=== PATIENT | male | born 1945 | race Hispanic/Latino ===

== ENCOUNTER → 2017-06-30 | Outpatient (CLI) | payer OTHER, MEDICARE ==
[~2017-06-30] MED LIST: ALLO100T PO; DIFL5DRO OP; FEBU80TA PO; HYDR-4153 PO; IOPAMIDOL-370 100 ML VIAL IV ONE; LOSA100T29 PO
== END | disposition home or self-care (01) ==
LOC: RAH 09:26
PROVIDERS: ATTEND Internal Medicine Cardiovascular Disease
DX: I71.4 Abdominal aortic aneurysm, without rupture (principal); K44.9 Diaphragmatic hernia without obstruction or gangrene; K57.30 Diverticulosis of large intestine without perforation or abscess without bleeding; N28.1 Cyst of kidney, acquired; R93.49 Abnormal radiologic findings on diagnostic imaging of other urinary organs
CPT/HCPCS: 74174; Q9967

== ENCOUNTER 2017-07-26 11:00 | Inpatient (IN) | payer OTHER, MEDICARE ==
[~2017-07-26] VITALS: Ht 175.3 cm; Wt 76.9 kg
[2017-07-26 12:15] VITALS: BP 157/81
[2017-07-26] MEDS ORDERED: LOSA100T29 PO (12:30)
[2017-07-26] MEDS ORDERED: ALLO100T PO (12:30)
[2017-07-26 13:03] LABS: CREATININE 0.8 mg/dL (0.5-1.5); HEMATOCRIT 40.7 % (42-54); MEAN CORPUSCULAR HEMOGLOBIN 32.9 pg (27.0-33.0); MEAN CORPUSCULAR VOLUME 96.9 fL (79-99); PLATELET COUNT (AUTO) 145 K/uL (130-400); POTASSIUM 5.4 mmol/L (3.5-5.1); RED CELL DISTRIBUTION WIDTH 16.2 % (11.0-15.5); WHITE BLOOD COUNT (AUTO) 5.2 K/uL (4.8-10.8)
[2017-07-26 13:04] LABS: BASOPHILS % (AUTO) 0.9 % (0.0-5.0); EOSINOPHILS % (AUTO) 1.9 % (0.0-8.0); LYMPHOCYTES % (AUTO) 25.6 % (21.0-51.0); MONOCYTES % (AUTO) 6.1 % (3.0-13.0); NEUTROPHILS % (AUTO) 65.5 % (40.0-77.0); NUCLEATED RED BLOOD CELLS 0.1 % (0.0-0.19)
[2017-07-26 13:05] LABS: APPEARANCE,URINE CLEAR (CLEAR); COLOR,URINE YELLOW (YELLOW); GLUCOSE, URINE (UA) NEGATIVE (NEGATIVE); INR 1.02 (0.85-1.15); OCCULT BLOOD,URINE NEGATIVE (NEGATIVE); PARTIAL THROMBOPLASTIN TIME 26.6 SEC (26.3-35.5); PROTEIN,URINE NEGATIVE (NEGATIVE); PROTHROMBIN TIME 10.7 SEC (9.6-11.6)
[2017-07-26 13:06] LABS: BILIRUBIN,URINE NEGATIVE (NEGATIVE); KETONES,URINE NEGATIVE (NEGATIVE); LEUKOCYTE ESTERASE ,URINE NEGATIVE (NEGATIVE); NITRATE,URINE NEGATIVE (NEGATIVE)
[2017-07-26] MEDS ORDERED: SODIUM CHLORIDE 0.9% 500ML 500 ML IV SCH (14:30)
[2017-07-27] MEDS ORDERED: WATER FOR INJECTION,STERILE 20 ML VIAL IJ SCH (08:00)
[2017-07-27] MEDS ORDERED: CEFAZOLIN SODIUM 1 GM VIAL IVP SCH (08:00)
[2017-07-28] VITALS (18 sets, daily range): BP systolic 100–168; BP diastolic 65–112
[2017-07-28] MEDS ORDERED: CEFAZOLIN SODIUM 1 GM VIAL ONE (06:22)
[2017-07-28] MEDS ORDERED: SODIUM CHLORIDE 0.9% 1000ML 1,000 ML IV ONE (06:22)
[2017-07-28] MEDS ORDERED: NEOSTIGMINE METHYLSULFATE 1MG/ML IV ONE (06:27)
[2017-07-28] MEDS ORDERED: GLYCOPYRROLATE 0.2 MG/ML 5 ML VIAL ONE (06:27)
[2017-07-28] MEDS ORDERED: DEXAMETHASONE SOD PHOSPHATE 10MG/ML 1ML VIAL ONE (06:27)
[2017-07-28] MEDS ORDERED: SUCCINYLCHOLINE 200MG/10ML SYR ONE (06:27)
[2017-07-28] MEDS ORDERED: ONDANSETRON HCL 4 MG/2 ML VIAL ONE (06:27)
[2017-07-28] MEDS ORDERED: LIDOCAINE PF 2% 5ML ABBOJECT ONE (06:27)
[2017-07-28] MEDS ORDERED: MIDAZOLAM HCL 1 MG/ML 2ML VIAL ONE (06:28)
[2017-07-28] MEDS ORDERED: PROPOFOL 10 MG/ML 20ML VIAL IV ONE ×2 (06:28→06:29)
[2017-07-28] MEDS ORDERED: FENTANYL CITRATE PF 50 MCG/1 ML 2ML VIAL ONE (06:28)
[2017-07-28] MEDS ORDERED: FENTANYL CITRATE PF 50 MCG/1 ML 5ML AMP IV ONE (06:28)
[2017-07-28] MEDS ORDERED: ESMOLOL HCL 10 MG/ML 10 ML VIAL ONE (06:30)
[2017-07-28] MEDS ORDERED: PHENYLEPHRINE HCL 10 MG/ML 1ML VIAL IV ONE (06:33)
[2017-07-28] MEDS ORDERED: FEBU80TA PO (06:39)
[2017-07-28] MEDS ORDERED: HYDR-4153 PO (06:40)
[2017-07-28] MEDS ORDERED: MINERAL OIL 25 ML OIL TP ONE (06:42)
[2017-07-28] MEDS ORDERED: ISOVUE-300 100 ML VIAL IV ONE (06:42)
[2017-07-28] MEDS ORDERED: HEPARIN SODIUM 1000UNIT/ML 10ML VIAL ONE ×3 (06:42→08:43)
[2017-07-28] MEDS ORDERED: DIFL5DRO OP (06:42)
[2017-07-28 07:31] LABS: CREATININE 0.9 mg/dL (0.5-1.5); POTASSIUM 3.8 mmol/L (3.5-5.1)
[2017-07-28] MEDS ORDERED: TEMAZEPAM 30 MG CAP PO PRN (09:45)
[2017-07-28] MEDS ORDERED: ACETAMINOPHEN 325 MG TAB PO PRN ×2 (09:45)
[2017-07-28] MEDS ORDERED: ACETAMINOPHEN-CODEINE 300/30MG TAB PO PRN ×2 (09:45)
[2017-07-28] MEDS ORDERED: MORPHINE SULFATE 4 MG/1ML SYG IV PRN (09:45)
[2017-07-28] MEDS ORDERED: MORPHINE SULFATE 5 MG/ML VIAL IV PRN (09:45)
[2017-07-28] MEDS: SODIUM CHLORIDE 0.9% 1000ML 1,000 ML IV SCH ×2 (10:11→20:38)
[2017-07-28] MEDS: CEFAZOLIN SODIUM 1 GM VIAL IVP SCH ×2 (15:25→22:25)
[2017-07-28] MEDS ORDERED: CEFAZOLIN 2GM / 50 ML 50 ML IV SCH (15:45)
[2017-07-28] MEDS: HYDRALAZINE HCL 25 MG TABLET PO SCH (20:38)
[2017-07-28] MEDS: ONDANSETRON HCL 4 MG/2 ML VIAL IV PRN (22:25)
[2017-07-29] VITALS (15 sets, daily range): BP systolic 137–167; BP diastolic 73–95
[2017-07-29] MEDS ORDERED: MORPHINE SULFATE 10 MG/ML 1ML SYG ONE (02:05)
[2017-07-29] MEDS: ONDANSETRON HCL 4 MG/2 ML VIAL IV PRN (02:09)
[2017-07-29 04:22] LABS: HEMATOCRIT 32.9 % (42-54); MEAN CORPUSCULAR HEMOGLOBIN 34.9 pg (27.0-33.0); MEAN CORPUSCULAR HGB CONC 36.4 g/dL (32.0-36.0); MEAN CORPUSCULAR VOLUME 95.9 fL (79-99); PLATELET COUNT (AUTO) 103 K/uL (130-400); RED BLOOD CELL COUNT(AUTO) 3.43 MIL/uL (4.50-6.20); RED CELL DISTRIBUTION WIDTH 16.1 % (11.0-15.5); WHITE BLOOD COUNT (AUTO) 9.7 K/uL (4.8-10.8)
[2017-07-29 04:31] LABS: CREATININE 0.8 mg/dL (0.5-1.5); POTASSIUM 3.9 mmol/L (3.5-5.1)
[2017-07-29] MEDS ORDERED: POTASSIUM CHLORIDE 20 MEQ ERTAB PO SCH (07:45)
[2017-07-29] MEDS: HYDRALAZINE HCL 25 MG TABLET PO SCH (08:07)
[2017-07-29] MEDS ORDERED: LOSARTAN 100 MG TABLET PO SCH (09:00)
[2017-07-29] MEDS ORDERED: ULORIC 80 MG PO SCH (09:00)
[2017-07-29] MEDS ORDERED: DUREZOL OP SCH (21:00)
== END 2017-07-29 11:58 | disposition home or self-care (01) | DRG 269 ==
LOC: EDSTATUS 11:00 → DAHIP 07-28 05:36 → 2BH 07-28 09:53
PROVIDERS: ADMIT Internal Medicine Cardiovascular Disease; ATTEND Internal Medicine Cardiovascular Disease
PROC: 04V03DZ Restriction of Abdominal Aorta with Intraluminal Device, Percutaneous Approach (ICD-10-PCS; principal; 2017-07-28 07:00)
DX: I71.4 Abdominal aortic aneurysm, without rupture (principal); E78.5 Hyperlipidemia, unspecified; I10 Essential (primary) hypertension; Z96.653 Presence of artificial knee joint, bilateral; Z98.84 Bariatric surgery status; Z82.49 Family history of ischemic heart disease and other diseases of the circulatory system
CPT/HCPCS: 34705; 34713; 36415; 71045; 80048; 81003; 85025; 85027; 85347; 85610; 85730; 86850; 86900; 86901; 86922; 93005; A4218; A4344; A4606; C1725; C1760; C1769; C1887; C1894; J0330; J0690; J1100; J1644; J2001; J2250; J2270; J2370; J2405; J2704; J2710; J3010; J3490; J7030; J7040; J7120; Q9967

== ENCOUNTER → 2017-12-07 | Outpatient (CLI) | payer OTHER, MEDICARE ==
[~2017-12-07] MED LIST changes: -ALLO100T PO
== END | disposition home or self-care (01) ==
LOC: OIH 09:16
PROVIDERS: ATTEND Internal Medicine Cardiovascular Disease
DX: I71.4 Abdominal aortic aneurysm, without rupture (principal); K57.90 Diverticulosis of intestine, part unspecified, without perforation or abscess without bleeding; K44.9 Diaphragmatic hernia without obstruction or gangrene; M47.895 Other spondylosis, thoracolumbar region; I25.10 Atherosclerotic heart disease of native coronary artery without angina pectoris
CPT/HCPCS: 74174; Q9967

== ENCOUNTER → 2022-04-02 | Outpatient (CLI) | payer OTHER, MEDICARE ==
[~2022-04-02] MED LIST changes: -IOPAMIDOL-370 100 ML VIAL IV ONE; -LOSA100T29 PO; +LOSA100T58 PO
[2022-04-02 15:47] LABS: ALBUMIN 2.9 g/dL (3.5-5.0); CREATININE 1.1 mg/dL (0.5-1.5); TOTAL PROTEIN, SERUM 6.8 g/dL (6.0-8.3)
== END | disposition home or self-care (01) ==
LOC: LAB 15:10
PROVIDERS: ATTEND Internal Medicine Cardiovascular Disease
DX: I71.40 Abdominal aortic aneurysm, without rupture, unspecified (principal)
CPT/HCPCS: 36415; 80053